=== PATIENT | male | born 1975 | race Hispanic/Latino ===

== ENCOUNTER 2023-03-31 14:46 | Outpatient (RCR) | payer MEDICAID, SELFPAY | END 2023-04-12 23:59 | disposition home or self-care (01) | LOC: CPTX 14:46 | PROVIDERS: PCP Nurse Practitioner Family; Referring Provider Nurse Practitioner Family; Visit Provider Nurse Practitioner Family | DX: Z53.8 Procedure and treatment not carried out for other reasons (principal) ==

== ENCOUNTER → 2025-02-02 | Outpatient (CLI) | payer SELFPAY ==
[2025-02-02 10:38] LABS: Motl CLS 1 30
[2025-02-02 10:51] LABS: % Variance 0 %; Count Side 1 7; Count Side 2 7; Sperm Count 7 Million (20-50)
[2025-02-02 10:52] LABS: % Variance Motility 0 %; Motl CLS 2 30; Room Temperature 24 (20-27C (Area)); Sperm Motility 30 % (>=50)
== END | disposition home or self-care (01) ==
PROVIDERS: Referring Provider Surgery; Visit Provider Surgery
DX: N52.9 Male erectile dysfunction, unspecified (principal)
CPT/HCPCS: 89310

== ENCOUNTER → 2025-03-28 | Outpatient (CLI) | payer MEDICAID, SELFPAY ==
--- NOTE | 2025-03-28 | XR_ITS ---
EXAMINATION: Left knee 2 views TECHNIQUE: AP lateral left knee 2 views Date and time: March 28, 2025, 1310 hours INDICATIONS: Left knee pain beginning several years ago. FINDINGS: Moderate tricompartment osteoarthritis No fracture No foreign body IMPRESSION: Moderate tricompartment osteoarthritis
== END | disposition home or self-care (01) ==
LOC: CDIM 11:35
PROVIDERS: PCP Nurse Practitioner Primary Care; Referring Provider Nurse Practitioner Primary Care; Visit Provider Nurse Practitioner Primary Care
DX: M17.12 Unilateral primary osteoarthritis, left knee (principal)
CPT/HCPCS: 73560